=== PATIENT | male | born 1985 | race Two or more races ===

== ENCOUNTER 2016-09-22 16:35 | Emergency (ER) | payer SELFPAY ==
[~2016-09-22] VITALS: Ht 190.5 cm; Wt 106.6 kg
[2016-09-22 16:44] VITALS: BP 139/112
[2016-09-22] MEDS ORDERED: HYDROcodone-ACET 10/325MG TAB PO ONE (20:00)
[2016-09-22] MEDS ORDERED: cefTRIAXone SOD 1,000 MG VL IM ONE (20:00)
== END 2016-09-22 20:12 | disposition home or self-care (01) ==
LOC: ER 16:40
DX: N45.1 Epididymitis (principal)
CPT/HCPCS: 76870; 96372; 99284; J0696